=== PATIENT | female | born 1980 | race Two or more races ===

== ENCOUNTER 2023-01-16 19:27 | Emergency (ER) | payer OTHER ==
[~2023-01-16] VITALS: Ht 157.5 cm; Wt 56.7 kg
[2023-01-16 21:03] LABS: HEMATOCRIT 38.3 % (36.0-45.00); HEMOGLOBIN 12.7 g/dL (12.0-15.00); MEAN CELL VOLUME 78.6 fL (80.00-100.00); MEAN CORPUSCULAR HEMOGLOBIN 26.2 pg (27.00-32.0); MEAN CORPUSCULAR HGB CONC 33.3 g/dl (32.0-36.0); PLATELET COUNT 203 K/uL (150-450); RED BLOOD COUNT 4.87 M/uL (4.00-6.00); RED CELL DISTRIBUTION WIDTH 14.4 % (11.5-14.5)
[2023-01-16] MEDS ORDERED: ZYRTEC10 MG PO (21:53)
[2023-01-16] MEDS ORDERED: OSEL75CA PO (21:53)
[2023-01-16] MEDS ORDERED: TUSSIN DM LIQU118 ML PO (21:53)
== END 2023-01-16 22:08 | disposition home or self-care (01) ==
LOC: ER 19:28
PROVIDERS: Nurse Practitioner Family
DX: J10.1 Influenza due to other identified influenza virus with other respiratory manifestations (principal); Z20.822 Contact with and (suspected) exposure to COVID-19

== ENCOUNTER 2023-03-07 07:29 | Emergency (ER) | payer OTHER ==
[~2023-03-07] VITALS: Ht 157.5 cm; Wt 56.7 kg
[~2023-03-07 07:29] MED LIST: OSEL75CA PO; TUSSIN DM LIQU118 ML PO; ZYRTEC10 MG PO
[2023-03-07 10:44] LABS: HEMATOCRIT 38.1 % (36.0-45.00); HEMOGLOBIN 12.6 g/dL (12.0-15.00); MEAN CELL VOLUME 78.3 fL (80.00-100.00); MEAN CORPUSCULAR HGB CONC 33.2 g/dl (32.0-36.0); PLATELET COUNT 222 K/uL (150-450); RED BLOOD COUNT 4.86 M/uL (4.00-6.00); RED CELL DISTRIBUTION WIDTH 14.7 % (11.5-14.5)
== END 2023-03-07 15:02 | disposition home or self-care (01) ==
LOC: ER 07:29
PROVIDERS: General Practice
DX: J11.1 Influenza due to unidentified influenza virus with other respiratory manifestations (principal); Z20.822 Contact with and (suspected) exposure to COVID-19

== ENCOUNTER 2024-06-26 16:13 | Emergency (ER) | payer OTHER ==
[~2024-06-26] VITALS: Ht 157.5 cm; Wt 56.7 kg
[2024-06-26] MEDS ORDERED: KETOROLAC TROMETHAMINE 60 MG VIAL IM ONE ×2 (16:59→17:00)
== END 2024-06-26 18:38 | disposition home or self-care (01) ==
LOC: ER 16:26
DX: G89.11 Acute pain due to trauma (principal); R68.84 Jaw pain

== ENCOUNTER 2024-09-03 17:26 | Inpatient (IN) | payer OTHER ==
[~2024-09-03] VITALS: Ht 157.5 cm; Wt 61.2 kg
[2024-09-03] MEDS ORDERED: CEFTRIAXONE SODIUM 1,000 MG VIAL IM STA (18:52)
[2024-09-03] MEDS ORDERED: CEFTRIAXONE SODIUM 1,000 MG VIAL ONE (19:13)
[2024-09-03 19:30] LABS: BASO % 0.2 % (0.1-1.2); EOS # 0.05 (0.04-0.54); EOS % 0.2 % (0.7-7.0); LYMPH # 1.18 (1.18-3.74); LYMPH % 5.8 % (19.3-53.1); MEAN PLATELET VOLUME 9.70 fl (9.4-12.4); MONO # 1.01 (0.24-0.82); MONO % 5.0 % (4.7-12.5); NEUT # 18.01 (1.56-6.13); NEUT % 88.5 % (34.0-71.1); RED CELL DISTRIBUTION WIDTH 13.9 % (11.6-14.4)
[2024-09-03 19:42] LABS: URINE APPEARANCE Turbid; URINE BILIRRUBIN Negative (NEGATIVE); URINE BLOOD Large; URINE COLOR Yellow; URINE GLUCOSE Negative (NEGATIVE); URINE KETONE Negative (NEGATIVE); URINE LEUKOCYTE Large; URINE NITRATE Negative; URINE UROBILINOGEN 0.2 E.U./dl
[2024-09-03 19:55] LABS: ALT/SGPT 15.0 U/L (12-78); AST/SGOT 15.0 U/L (15-37); BILIRUBIN TOTAL 0.64 mg/dL (0.3-1.2); BUN CREA RATIO 10.0 (7.0-25.0); CREATININE SERUM 0.73 mg/dL (0.55-1.02); GFR 87.43; GLOBULINA 3.7 G/DL (2.4-3.5); GLUCOSE FASTING 105.0 mg/dL (65-100); OSMOLALITY SERUM 274.0 MOSM/KG (275-295)
[2024-09-03 20:00] LABS: URINE BACTERIA 2552.3 uL (0.0-1933); URINE EPITHELIAL CELLS 42.6 uL (0.0-38.8); URINE RBC 22.7 uL (0.0-20.8); URINE WBC 5159.6 uL (0.0-23.2)
[2024-09-03 20:02] LABS: URINE CAST 0.58 uL (0.0-1.40); URINE PROTEIN 100 (NEGATIVE)
[2024-09-03] MEDS ORDERED: 0.9 % SODIUM CHLORIDE 1,000 ML IV ONE (20:15)
[2024-09-03 21:48] LABS: BASO % 0.3 % (0.1-1.2); EOS # 0.07 (0.04-0.54); EOS % 0.4 % (0.7-7.0); LYMPH # 1.36 (1.18-3.74); LYMPH % 7.1 % (19.3-53.1); MEAN PLATELET VOLUME 9.80 fl (9.4-12.4); MONO # 0.90 (0.24-0.82); MONO % 4.7 % (4.7-12.5); NEUT # 16.67 (1.56-6.13); NEUT % 87.2 % (34.0-71.1); RED CELL DISTRIBUTION WIDTH 14.1 % (11.6-14.4)
[2024-09-03] MEDS ORDERED: CEFTRIAXONE SODIUM 2,000 MG in 0.9 % SODIUM CHLORIDE 100 ML IV SCH (23:34)
[2024-09-03] MEDS ORDERED: FAMOTIDINE/PF 20 MG in 0.9 % SODIUM CHLORIDE 8 ML IV PUSH SCH (23:34)
[2024-09-03] MEDS ORDERED: 0.9 % SODIUM CHLORIDE 1,000 ML IV SCH (23:45)
[2024-09-03] MEDS ORDERED: ONDANSETRON HCL 4 MG in 0.9 % SODIUM CHLORIDE 50 ML IV PRN (23:45)
[2024-09-03] MEDS ORDERED: ACETAMINOPHEN 500 MG GEL..CAP PO PRN (23:45)
[2024-09-03] MEDS ORDERED: KETOROLAC TROMETHAMINE 15 MG VIAL IU ONE (23:45)
[2024-09-04 04:51] LABS: INR 1.0
[2024-09-04 09:38] VITALS: BP 89/57; O2SAT 97
[2024-09-04] MEDS ORDERED: DEXTROSE 50 % IN WATER 0.5 G/ML VIAL IV ONE (15:16)
[2024-09-04] MEDS ORDERED: DEXTROSE 50 % IN WATER 0.5 G/ML VIAL IV PRN (15:30)
[2024-09-04 16:43] VITALS: BP 105/62; O2SAT 97
[2024-09-04] MEDS ORDERED: LACTOBACILLUS ACIDOPHILUS 1 CAP CAP PO SCH (17:00)
[2024-09-05 01:06] VITALS: BP 115/63; BP 93/59; O2SAT 96; O2SAT 99
[2024-09-05 08:00] VITALS: BP 103/66; O2SAT 100
[2024-09-05 15:22] LABS: BASO % 0.4 % (0.1-1.2); EOS # 0.17 (0.04-0.54); EOS % 2.5 % (0.7-7.0); LYMPH # 0.92 (1.18-3.74); LYMPH % 13.6 % (19.3-53.1); MEAN PLATELET VOLUME 10.20 fl (9.4-12.4); MONO # 0.32 (0.24-0.82); MONO % 4.7 % (4.7-12.5); NEUT # 5.32 (1.56-6.13); NEUT % 78.5 % (34.0-71.1); RED CELL DISTRIBUTION WIDTH 14.4 % (11.6-14.4)
[2024-09-05 15:36] LABS: BUN CREA RATIO 13.0 (7.0-25.0); CREATININE SERUM 0.52 mg/dL (0.55-1.02); GFR 129.32; GLUCOSE FASTING 98.0 mg/dL (65-100); OSMOLALITY SERUM 283.0 MOSM/KG (275-295)
[2024-09-05 16:00] VITALS: BP 103/70; O2SAT 100
[2024-09-06 01:03] VITALS: BP 108/69; O2SAT 96
== END 2024-09-06 13:00 | disposition home or self-care (01) | DRG 690 ==
LOC: ER 17:29 → SURG 23:36 → SEC-K 23:36 → SURG 09-04 00:56 → SURH 09-06 01:52
PROVIDERS: General Practice; Student in an Organized Health Care Education/Training Program; ADMIT Internal Medicine; ATTEND Internal Medicine
PROC: BW21ZZZ Computerized Tomography (CT Scan) of Abdomen and Pelvis (ICD-10-PCS; principal; 2024-09-03)
DX: N39.0 Urinary tract infection, site not specified (principal); R65.10 Systemic inflammatory response syndrome (SIRS) of non-infectious origin without acute organ dysfunction